=== PATIENT | female | born 1975 | race Two or more races ===

== ENCOUNTER → 2019-12-23 | Outpatient (CLI) | payer OTHER | END | disposition home or self-care (01) | LOC: PRENATAL 08:30 | PROVIDERS: ATTEND Obstetrics & Gynecology Maternal & Fetal Medicine | DX: O26.843 Uterine size-date discrepancy, third trimester (principal); O10.012 Pre-existing essential hypertension complicating pregnancy, second trimester; O24.410 Gestational diabetes mellitus in pregnancy, diet controlled; O99.210 Obesity complicating pregnancy, unspecified trimester; Z36.89 Encounter for other specified antenatal screening ==

== ENCOUNTER → 2020-01-22 | Outpatient (CLI) | payer OTHER | END | disposition home or self-care (01) | LOC: PRENATAL 08:30 | PROVIDERS: ATTEND Obstetrics & Gynecology | DX: O10.013 Pre-existing essential hypertension complicating pregnancy, third trimester (principal); O09.523 Supervision of elderly multigravida, third trimester; O24.313 Unspecified pre-existing diabetes mellitus in pregnancy, third trimester; O99.213 Obesity complicating pregnancy, third trimester ==

== ENCOUNTER 2020-02-04 07:08 | Outpatient (CLI) | payer OTHER | END 2020-02-04 14:43 | disposition left against medical advice (07) | LOC: OBS/DEL 07:08 | PROVIDERS: ATTEND Obstetrics & Gynecology | DX: O26.842 Uterine size-date discrepancy, second trimester (principal); O60.02 Preterm labor without delivery, second trimester; O26.892 Other specified pregnancy related conditions, second trimester; R10.2 Pelvic and perineal pain ==

== ENCOUNTER → 2020-02-26 | Outpatient (CLI) | payer OTHER ==
[~2020-02-26] MED LIST: ALDOMET250 MG/5 M PO; ASPIR 8181 MG PO; FORTAMET500 MG PO; PRENATAL TABLE1 EAC1 PO
== END | disposition home or self-care (01) ==
LOC: PRENATAL 08:00 → EDBD 08:00 → PRENATAL 08:26
PROVIDERS: ATTEND Obstetrics & Gynecology Maternal & Fetal Medicine
DX: O10.012 Pre-existing essential hypertension complicating pregnancy, second trimester (principal); O09.522 Supervision of elderly multigravida, second trimester; O24.312 Unspecified pre-existing diabetes mellitus in pregnancy, second trimester; O99.212 Obesity complicating pregnancy, second trimester; Z36.89 Encounter for other specified antenatal screening; Z3A.23 23 weeks gestation of pregnancy

== ENCOUNTER → 2020-03-22 | Outpatient (CLI) | payer OTHER | END | disposition home or self-care (01) | LOC: PRENATAL 08:21 | PROVIDERS: ATTEND Obstetrics & Gynecology Maternal & Fetal Medicine | DX: O24.313 Unspecified pre-existing diabetes mellitus in pregnancy, third trimester (principal); O10.013 Pre-existing essential hypertension complicating pregnancy, third trimester; O09.523 Supervision of elderly multigravida, third trimester; O99.213 Obesity complicating pregnancy, third trimester; Z36.89 Encounter for other specified antenatal screening; Z3A.28 28 weeks gestation of pregnancy ==

== ENCOUNTER 2020-04-01 15:42 | Outpatient (CLI) | payer OTHER ==
[2020-04-01] MEDS ORDERED: ALDOMET250 MG/5 M PO (17:05)
[2020-04-01] MEDS ORDERED: FORTAMET500 MG PO (17:05)
[2020-04-01] MEDS ORDERED: PRENATAL TABLE1 EAC1 PO (17:05)
[2020-04-01] MEDS ORDERED: ASPIR 8181 MG PO (17:05)
== END 2020-04-01 19:14 | disposition home or self-care (01) ==
LOC: OBS/DEL 15:42
PROVIDERS: ATTEND Obstetrics & Gynecology
DX: O26.893 Other specified pregnancy related conditions, third trimester (principal); R10.2 Pelvic and perineal pain

== ENCOUNTER → 2020-04-20 | Outpatient (CLI) | payer OTHER | END | disposition home or self-care (01) | LOC: PRENATAL 08:00 | PROVIDERS: ATTEND Obstetrics & Gynecology Maternal & Fetal Medicine | DX: O10.013 Pre-existing essential hypertension complicating pregnancy, third trimester (principal); O24.313 Unspecified pre-existing diabetes mellitus in pregnancy, third trimester; O99.213 Obesity complicating pregnancy, third trimester; O09.523 Supervision of elderly multigravida, third trimester; Z36.89 Encounter for other specified antenatal screening; Z3A.31 31 weeks gestation of pregnancy ==

== ENCOUNTER → 2020-05-17 | Outpatient (CLI) | payer OTHER | END | disposition home or self-care (01) | LOC: PRENATAL 08:30 | PROVIDERS: ATTEND Obstetrics & Gynecology Maternal & Fetal Medicine | DX: O10.013 Pre-existing essential hypertension complicating pregnancy, third trimester (principal); O24.313 Unspecified pre-existing diabetes mellitus in pregnancy, third trimester; O09.523 Supervision of elderly multigravida, third trimester; O99.213 Obesity complicating pregnancy, third trimester; Z36.89 Encounter for other specified antenatal screening; Z3A.35 35 weeks gestation of pregnancy ==

== ENCOUNTER 2020-05-24 07:46 | Inpatient (IN) | payer OTHER ==
[~2020-05-24] VITALS: Ht 157.5 cm; Wt 111.1 kg
== END 2020-05-27 11:10 | DRG 783 ==
LOC: SURG-SUITE 07:46 → LDR 07:46 → SURG-SUITE 13:33
PROVIDERS: ADMIT Obstetrics & Gynecology; ATTEND Obstetrics & Gynecology
PROC: 0UL70ZZ Occlusion of Bilateral Fallopian Tubes, Open Approach (ICD-10-PCS; 2020-05-24)
PROC: 4A0HXFZ Measurement of Products of Conception, Cardiac Rhythm, External Approach (ICD-10-PCS; 2020-05-24)
PROC: 10D00Z1 Extraction of Products of Conception, Low, Open Approach (ICD-10-PCS; principal; 2020-05-24 12:45)
DX: O82 Encounter for cesarean delivery without indication (principal); O24.12 Pre-existing type 2 diabetes mellitus, in childbirth; O10.02 Pre-existing essential hypertension complicating childbirth; E11.9 Type 2 diabetes mellitus without complications; Z3A.37 37 weeks gestation of pregnancy; Z37.0 Single live birth; Z30.2 Encounter for sterilization; Z20.828 Contact with and (suspected) exposure to other viral communicable diseases